=== PATIENT | female | born 1990 | race Caucasian/White ===

== ENCOUNTER → 2017-01-24 | Outpatient (CLI) | payer OTHER | LOC: KOH-I 16:11 | DX: M25.562 Pain in left knee (principal) | CPT/HCPCS: 73564 ==

== ENCOUNTER 2021-04-14 11:03 | Emergency (ER) | payer OTHER ==
[2021-04-14 11:43] LABS: HEMOGLOBIN 12.4 gm/dl (12.3-15.3); RED BLOOD COUNT 4.53 M/UL (4.00-5.10); WHITE BLOOD COUNT 9.9 K/UL (4.5-11.0)
[2021-04-14 12:15] LABS: BUN/CREATININE RATIO 23 (0-10)
[2021-04-14] MEDS ORDERED: BENTYL 20MG TAB20 MG PO (13:10)
== END 2021-04-14 13:19 | disposition home or self-care (01) ==
LOC: ER1 11:03
PROVIDERS: Physician Assistant
DX: R10.31 Right lower quadrant pain (principal); R19.7 Diarrhea, unspecified; R11.0 Nausea
CPT/HCPCS: 80053; 81001; 84703; 85025; 99284; Q9967

== ENCOUNTER → 2021-04-19 | Outpatient (CLI) | payer OTHER ==
[~2021-04-19] MED LIST: BENTYL 20MG TAB20 MG PO
== END ==
LOC: EXRD 09:45
DX: R10.9 Unspecified abdominal pain (principal); K80.20 Calculus of gallbladder without cholecystitis without obstruction
CPT/HCPCS: 76700

== ENCOUNTER → 2021-07-31 | Outpatient (CLI) | payer OTHER | LOC: EMI 14:00 | DX: R94.02 Abnormal brain scan (principal); G44.89 Other headache syndrome; G43.009 Migraine without aura, not intractable, without status migrainosus | CPT/HCPCS: 70553; A9577 ==